=== PATIENT | female | born 1975 | race Caucasian/White ===

== ENCOUNTER 2016-09-26 15:37 | Emergency (ER) | payer SELFPAY ==
[~2016-09-26] VITALS: Ht 170.2 cm; Wt 87.1 kg
[~2016-09-26 15:37] MED LIST: ADVAIR DIS14 PUFF/DI INH; FLEXERIL10 MG PO; HYDROCHLOROTHIA25 MG PO; PERCOCET 325-51 TAB PO; PREDNISONE10 MG PO; PRINIVIL20 M1 PO; TRAZODONE HCL50 MG PO; TYLENOL325 M1 PO; VENTOLIN HFA8 GM INH
[2016-09-26] MEDS ORDERED: GLUCOPHAGE1000 MG PO (17:00)
[2016-09-26] MEDS ORDERED: PROVENTIL HFA6.7 GM INH (17:01)
== END 2016-09-26 17:10 | disposition short-term general hospital (02) ==
LOC: ER 15:37
DX: J45.901 Unspecified asthma with (acute) exacerbation (principal); F41.9 Anxiety disorder, unspecified; F17.210 Nicotine dependence, cigarettes, uncomplicated; Z79.84 Long term (current) use of oral hypoglycemic drugs; Z79.899 Other long term (current) drug therapy
CPT/HCPCS: J2060; J2930